=== PATIENT | female | born 1955 | race Caucasian/White ===

== ENCOUNTER 2023-07-22 06:43 | Observation (INO) ==
[~2023-07-22 06:43] MED LIST: Buffered Lidocaine 1% SYRIN 1 ml INTRADERM ONE; Lactated Ringers 1000 ml BAG 1,000 ML IV SCH
[2023-07-22] MEDS ORDERED: Tranexamic Acid 1 GM/100ML BAG 2,000 MG/200 ML BAG IV ONE (07:51)
[2023-07-22] MEDS ORDERED: ceFAZolin 2 GM in NS PREMIX 2 GM/100 ML BAG IVPB ONE (07:51)
[2023-07-22 08:53] LABS: Rapid COVID-19 Molecular Undetected (Undetected)
[2023-07-22] MEDS ORDERED: ROPIVACAINE 5 MG/ML 30 ML BTL (0.5%) ONE (08:58)
[2023-07-22] MEDS ORDERED: Phenylephrine IV 10 MG/ML 1 ml VIAL ONE (09:15)
[2023-07-22] MEDS ORDERED: Lidocaine 2% PF 5 ML VIAL ONE (09:15)
[2023-07-22] MEDS ORDERED: Midazolam 2 mg/2 ml VIAL 1 mg/ml 2 ml VIAL (2 mg) ONE (09:20)
[2023-07-22] MEDS ORDERED: HYDROmorphone 1 MG/1 ML SYRINGE IV PRN (09:35)
[2023-07-22] MEDS ORDERED: Naloxone 0.4 mg VIAL 0.4 mg/ml 1 ml VIAL IV PRN (09:35)
[2023-07-22] MEDS ORDERED: Ondansetron 4 mg VIAL 2 MG/ML 2 ml VIAL IV PRN (10:46)
[2023-07-22] MEDS ORDERED: Lactulose 30 ml UDC PO PRN (10:46)
[2023-07-22] MEDS ORDERED: Magnesium Hydroxide LIQ 30 ML UDC PO PRN (10:46)
[2023-07-22] MEDS ORDERED: Morphine 2 MG/ML SYRINGE IV PRN (10:46)
[2023-07-22] MEDS ORDERED: Ondansetron ODT 4 mg TAB 4 MG TAB PO PRN (10:46)
[2023-07-22] MEDS: Lactated Ringers 1000 ml BAG 1,000 ML IV SCH (14:42)
[2023-07-22] MEDS ORDERED: Dextrose 50% Syringe 50 ml 25 GM/50 ML SYRINGE IV PUSH PRN (14:45)
[2023-07-22] MEDS: Clindamycin 600 MG/D5W BAG 600 MG/50 ML BAG IV SCH (17:03)
[2023-07-22] MEDS: Magnesium Hydroxide LIQ 30 ML UDC PO SCH (21:35)
[2023-07-23] MEDS: Lactated Ringers 1000 ml BAG 1,000 ML IV SCH ×2 (00:15→08:28)
[2023-07-23] MEDS: Clindamycin 600 MG/D5W BAG 600 MG/50 ML BAG IV SCH ×2 (00:16→08:21)
[2023-07-23 06:31] LABS: Platelet Count 346 10^3/uL (150-450)
[2023-07-23 06:48] LABS: Creatinine, Serum 0.81 mg/dL (0.51-0.95); Potassium 4.8 mmol/L (3.5-5.0)
[2023-07-23 08:14] LABS: Hematocrit 34.5 % (35-45); Hemoglobin 11.4 g/dL (11.5-14.3); Mean Platelet Volume 7.8 fL (7.5-11.2)
[2023-07-23] MEDS: Pancrelipase 5,000 units CAP PO SCH ×2 (08:19→12:02)
[2023-07-23] MEDS: Magnesium Hydroxide LIQ 30 ML UDC PO SCH (08:27)
[2023-07-23] MEDS ORDERED: Vitamin THERAPEUTIC TAB PO SCH (09:00)
[2023-07-23 09:20] VITALS: BP 127/64
== END 2023-07-23 13:00 | disposition home or self-care (01) ==
LOC: AA 06:43 → INTOOBSV 06:43 → SSU 10:46
PROVIDERS: ADMIT Orthopaedic Surgery Adult Reconstructive Orthopaedic Surgery; ATTEND Orthopaedic Surgery Adult Reconstructive Orthopaedic Surgery